=== PATIENT | female | born 1940 | race African-American/Black ===

== ENCOUNTER 2023-06-02 15:25 | Inpatient (IN) | payer MEDICARE, MEDICAID ==
[~2023-06-02] VITALS: Ht 165.1 cm; Wt 90.3 kg
[2023-06-02] VITALS (7 sets, daily range): BP systolic 141–166; BP diastolic 82–91; PULSE 97–112; RESP 17–32; TEMP 96.7–98.3; O2SAT 94–100
[2023-06-02] MEDS ORDERED: ALBUTEROL SULFATE/IPRATROPIU 3 ML SOL IH ONE (15:40)
[2023-06-02] MEDS: ALBUTEROL SULFATE/IPRATROPIU 3 ML SOL IH ONE (15:44)
[2023-06-02] MEDS ORDERED: cefTRIAXone 1,000 MG VIAL ONE (15:52)
[2023-06-02] MEDS: AZITHROMYCIN 500 MG in DEXTROSE 5% 250 ML IV ONE (16:00)
[2023-06-02 16:09] LABS: BLOOD GAS BASE EXCESS 2.2 mmol/L (-2.0-2.0); BLOOD GAS HCO3 27.7 mmol/L (22-26); BLOOD GAS O2 SAT% 94.9 % (92.0-98.5); BLOOD GAS PH 7.389 (7.35-7.45); BLOOD GAS PO2 74.6 mmHg (75-100)
[2023-06-02] MEDS: methylPREDNISolone SS 125 MG/2 ML VIAL IVP ONE (16:16)
[2023-06-02] MEDS ORDERED: AZITHROMYCIN 500 MG INJ VIAL IV ONE (16:29)
[2023-06-02] MEDS: guaiFENesin DM 200/20 MG-10 ML 10 ML UDC PO ONE (16:33)
[2023-06-02] MEDS: KETOROLAC 30 MG/ML VIAL IVP ONE (16:34)
[2023-06-02 16:36] LABS: BASOPHILS % (AUTO) 0.5 % (0.0-2.0); EOSINOPHILS # (AUTO) 0.3 K/uL (0-0.4); EOSINOPHILS % (AUTO) 2.7 % (0.0-4.0); HEMATOCRIT 35.2 % (36-48); HEMOGLOBIN 11.8 g/dL (12.0-16.0); LYMPHOCYTES % (AUTO) 9.9 % (20.5-51.1); MEAN CORPUSCULAR HEMOGLOBIN 31 pg (27-31); MEAN CORPUSCULAR HGB CONC 34 g/dL (33-37); MEAN CORPUSCULAR VOLUME 93.7 fL (80-94); NEUTROPHILS # (AUTO) 7.4 K/uL (1.8-7.7); NEUTROPHILS % (AUTO) 76.9 % (42.2-75.2); PLATELET COUNT (AUTO) 174 K/uL (140-450); RED BLOOD CELL COUNT(AUTO) 3.76 MIL/uL (4.20-5.40); RED CELL DISTRIBUTION WIDTH 14.4 % (11.6-13.7); WHITE BLOOD COUNT (AUTO) 9.6 K/uL (4.8-10.8)
[2023-06-02 16:46] LABS: ANION GAP 8.9 (8-16); CALCIUM 8.8 mg/dL (8.5-10.1); CARBON DIOXIDE 32.4 mmol/L (21-32); CHLORIDE 99 mmol/L (98-107); GLUCOSE 126 mg/dL (74-106); POTASSIUM 3.3 mmol/L (3.5-5.1); SODIUM SERUM 137 mmol/L (136-145); UREA NITROGEN, BLOOD 16 mg/dL (7-18)
[2023-06-02 16:51] LABS: FLU A ANTIGEN negative (NEGATIVE); FLU B ANTIGEN NEGATIVE (NEGATIVE)
[2023-06-02 16:55] LABS: ALANINE AMINOTRANSFERASE 13 U/L (12-78); ALBUMIN 3.3 g/dL (3.4-5.0); ALKALINE PHOSPHATASE 73 U/L (50-136); ASPARTATE AMINOTRANSFERASE 19 U/L (15-37); BILIRUBIN,DIRECT 0.1 mg/dL (0.0-0.3); TOTAL BILIRUBIN 0.3 mg/dL (0.0-1.0); TOTAL PROTEIN, SERUM 8.5 g/dL (6.4-8.2)
[2023-06-02 17:16] LABS: LACTIC ACID 1.5 mmol/L (0.4-2.0)
[2023-06-02 17:41] LABS: APPEARANCE,URINE CLEAR (CLEAR); BILIRUBIN,URINE NEGATIVE (NEGATIVE); BLOOD, URINE TRACE-I (NEGATIVE); COLOR,URINE YELLOW (YELLOW); LEUKOCYTE ESTERASE ,URINE TRACE (NEGATIVE); NITRITE, URINE NEGATIVE (NEGATIVE); PROTEIN,URINE NEGATIVE (NEGATIVE); UGLUCOSE NEGATIVE (NEGATIVE); UROBILINOGEN,URINE 0.2 EU/dL (0.2 - 1)
[2023-06-02] MEDS ORDERED: FAMO-90 PO (17:44)
[2023-06-02] MEDS ORDERED: ALBU0.63 NEB (17:44)
[2023-06-02] MEDS ORDERED: HYDR-2849 PO (17:44)
[2023-06-02] MEDS ORDERED: FLONAS NS (17:44)
[2023-06-02] MEDS ORDERED: GABA300C PO (17:44)
[2023-06-02] MEDS ORDERED: ALBU0.0912 INH (17:44)
[2023-06-02] MEDS ORDERED: SITA100T8 PO (17:44)
[2023-06-02 17:46] LABS: BACTERIA,URINE FEW /HPF (None Seen); RBC,URINE 0-5 /HPF (0-5); SQUAMOUS EPITHELIAL CELL,UR 0-3 (FEW) /LPF (0-3 (FEW)); WBC,URINE 0-5 /HPF (0-5)
[2023-06-02] MEDS ORDERED: ZOLPIDEM 10 MG TAB PO PRN (17:55)
[2023-06-02] MEDS ORDERED: ALBUTEROL SULFATE/IPRATROPIU 3 ML SOL IH SCH ×2 (17:55→23:00)
[2023-06-02] MEDS ORDERED: ONDANSETRON 4 MG/2 ML VIAL IVP PRN (17:55)
[2023-06-02] MEDS ORDERED: MORPHINE SULFATE 4 MG/ML SYR IVP PRN (17:55)
[2023-06-02] MEDS ORDERED: MAG SULF 2000 MG/WATER PREMIX 50 ML IV PRN (17:55)
[2023-06-02] MEDS ORDERED: ACETAMINOPHEN 325 MG TAB PO PRN (17:55)
[2023-06-02] MEDS: HYDROcodone/APAP 5/325 MG 1 TAB TAB PO ONE (18:13)
[2023-06-02] MEDS: ALBUTEROL SULFATE/IPRATROPIU 3 ML SOL IH SCH (21:16)
[2023-06-02] MEDS: methylPREDNISolone SS 40 MG in WATER STERILE 1 ML IV SCH (21:20)
[2023-06-02] MEDS: WATER STERILE 10 ML MC ONE (21:24)
[2023-06-02] MEDS: methylPREDNISolone SS 40 MG/ML VIAL ONE (21:24)
[2023-06-02] MEDS ORDERED: DEXTROSE 50% 50 ML SYR IVP PRN (21:45)
[2023-06-02] MEDS: POTASSIUM CHLORIDE 10 MEQ TABER PO PRN (22:53)
[2023-06-03] VITALS (19 sets, daily range): BP systolic 131–154; BP diastolic 66–95; PULSE 83–115; RESP 20–31; TEMP 93–98.6; O2SAT 92–99
[2023-06-03] MEDS: HYDROcodone/APAP 5/325 MG 1 TAB TAB PO PRN (02:28)
[2023-06-03] MEDS: methylPREDNISolone SS 40 MG/ML VIAL ONE (05:32)
[2023-06-03] MEDS: WATER STERILE 10 ML MC ONE (05:32)
[2023-06-03] MEDS: guaiFENesin 600 MG TABER PO SCH (06:04)
[2023-06-03] MEDS: LORazepam 2 MG/ML VIAL IVP PRN (06:08)
[2023-06-03 06:24] LABS: BASOPHILS # (AUTO) 0.1 K/uL (0.00-0.22); BASOPHILS % (AUTO) 0.7 % (0.0-2.0); EOSINOPHILS % (AUTO) 0.1 % (0.0-4.0); HEMATOCRIT 35.6 % (36-48); LYMPHOCYTES # (AUTO) 0.4 K/uL (2.5-16.5); LYMPHOCYTES % (AUTO) 5.5 % (20.5-51.1); MEAN CORPUSCULAR HEMOGLOBIN 32 pg (27-31); MEAN CORPUSCULAR HGB CONC 34 g/dL (33-37); MEAN CORPUSCULAR VOLUME 93.4 fL (80-94); MONOCYTES # (AUTO) 0.4 K/uL (0.8-1.0); MONOCYTES % (AUTO) 5.5 % (1.7-9.3); NEUTROPHILS # (AUTO) 6.8 K/uL (1.8-7.7); NEUTROPHILS % (AUTO) 88.2 % (42.2-75.2); PLATELET COUNT (AUTO) 76 K/uL (140-450); RED BLOOD CELL COUNT(AUTO) 3.81 MIL/uL (4.20-5.40); RED CELL DISTRIBUTION WIDTH 14.8 % (11.6-13.7); WHITE BLOOD COUNT (AUTO) 7.7 K/uL (4.8-10.8)
[2023-06-03] MEDS: BLOOD GLUCOSE MONITORING 1 DEV DEV FS SCH (06:33)
[2023-06-03 06:50] LABS: ALANINE AMINOTRANSFERASE 24 U/L (12-78); ALBUMIN 3.6 g/dL (3.4-5.0); ALKALINE PHOSPHATASE 71 U/L (50-136); ANION GAP 12.4 (8-16); ASPARTATE AMINOTRANSFERASE 17 U/L (15-37); CALCIUM 9.1 mg/dL (8.5-10.1); CARBON DIOXIDE 29.2 mmol/L (21-32); CHLORIDE 95 mmol/L (98-107); CREATININE 0.9 mg/dL (0.6-1.3); GLUCOSE 159 mg/dL (74-106); POTASSIUM 4.6 mmol/L (3.5-5.1); SODIUM SERUM 132 mmol/L (136-145); TOTAL PROTEIN, SERUM 8.3 g/dL (6.4-8.2); UREA NITROGEN, BLOOD 17 mg/dL (7-18)
[2023-06-03] MEDS: PANTOPRAZOLE 40 MG INJ VIAL IVP SCH (08:55)
[2023-06-03] MEDS ORDERED: guaiFENesin 600 MG TABER PO SCH (09:00)
[2023-06-03 10:08] LABS: BLOOD GAS PCO2 49.5 mmHg (35-45); BLOOD GAS PH 7.372 (7.35-7.45); BLOOD GAS PO2 73.2 mmHg (75-100)
[2023-06-03 10:09] LABS: BLOOD GAS BASE EXCESS 2.1 mmol/L (-2.0-2.0); BLOOD GAS HCO3 28.1 mmol/L (22-26); BLOOD GAS O2 SAT% 94.7 % (92.0-98.5)
[2023-06-03] MEDS: IPRATROPIUM 0.02% 0.5 MG/2.5 ML NEBU INH SCH (10:09)
[2023-06-03] MEDS: LEVALBUTEROL 0.63 MG/3 ML NEBU INH SCH (10:09)
[2023-06-03] MEDS: FUROSEMIDE 40 MG/4 ML VIAL IVP SCH (10:10)
[2023-06-03 10:40] LABS: TOTAL BILIRUBIN 0.4 mg/dL (0.0-1.0)
[2023-06-03] MEDS ORDERED: hydrALAZINE 20 MG/ML VIAL IVP PRN (10:55)
[2023-06-03] MEDS ORDERED: CLINICAL MONITORING MC PRN (11:20)
[2023-06-03] MEDS: methylPREDNISolone SS 40 MG/ML VIAL IVP SCH (12:26)
[2023-06-03] MEDS: INSULIN LISPRO SLIDING SCALE 100 UNITS/ML VIAL SUBQ PRN (12:27)
[2023-06-03] MEDS: IPRATROPIUM 0.02% 0.5 MG/2.5 ML NEBU INH PRN (13:45)
[2023-06-03] MEDS: BENZONATATE 100 MG CAPLF PO PRN (14:03)
[2023-06-03] MEDS: LEVALBUTEROL 0.63 MG/3 ML NEBU INH PRN (17:49)
[2023-06-03] MEDS: AZITHROMYCIN 500 MG in DEXTROSE 5% 250 ML IV SCH (18:19)
[2023-06-03] MEDS: GABAPENTIN 300 MG CAP PO SCH (21:52)
[2023-06-04] VITALS (17 sets, daily range): BP systolic 110–155; BP diastolic 58–96; PULSE 80–114; RESP 18–24; TEMP 96.3–98.8; O2SAT 93–99
[2023-06-04] MEDS: ACETYLCYSTEINE 10% (100 MG/ML) 100 MG/ML VIAL INH SCH (04:00)
[2023-06-04 06:15] LABS: BASOPHILS % (AUTO) 0.1 % (0.0-2.0); HEMATOCRIT 35.2 % (36-48); LYMPHOCYTES # (AUTO) 0.6 K/uL (2.5-16.5); LYMPHOCYTES % (AUTO) 8.2 % (20.5-51.1); MEAN CORPUSCULAR HEMOGLOBIN 31 pg (27-31); MEAN CORPUSCULAR HGB CONC 34 g/dL (33-37); MEAN CORPUSCULAR VOLUME 92.3 fL (80-94); MONOCYTES % (AUTO) 12.8 % (1.7-9.3); NEUTROPHILS # (AUTO) 6.2 K/uL (1.8-7.7); NEUTROPHILS % (AUTO) 78.9 % (42.2-75.2); PLATELET COUNT (AUTO) 196 K/uL (140-450); RED BLOOD CELL COUNT(AUTO) 3.81 MIL/uL (4.20-5.40); RED CELL DISTRIBUTION WIDTH 14.8 % (11.6-13.7); WHITE BLOOD COUNT (AUTO) 7.8 K/uL (4.8-10.8)
[2023-06-04 06:45] LABS: ALANINE AMINOTRANSFERASE 26 U/L (12-78); ALBUMIN 3.2 g/dL (3.4-5.0); ALKALINE PHOSPHATASE 72 U/L (50-136); ANION GAP 13.9 (8-16); ASPARTATE AMINOTRANSFERASE 36 U/L (15-37); CALCIUM 8.7 mg/dL (8.5-10.1); CARBON DIOXIDE 30.8 mmol/L (21-32); CHLORIDE 90 mmol/L (98-107); GLUCOSE 138 mg/dL (74-106); MAGNESIUM 2.1 mg/dL (1.8-2.4); POTASSIUM 4.7 mmol/L (3.5-5.1); SODIUM SERUM 130 mmol/L (136-145); TOTAL BILIRUBIN 0.5 mg/dL (0.0-1.0); TOTAL PROTEIN, SERUM 8.7 g/dL (6.4-8.2); UREA NITROGEN, BLOOD 22 mg/dL (7-18)
[2023-06-04] MEDS: BUDESONIDE 0.5 MG/2 ML NEBU INH SCH (07:47)
[2023-06-04] MEDS: lisinopriL 10 MG TAB PO SCH (10:19)
[2023-06-04] MEDS: SENNA 8.6 MG TAB PO SCH (12:17)
[2023-06-04] MEDS: POLYETHYLENE GLYCOL 17 GM/PKT PO SCH (12:17)
[2023-06-05] VITALS (14 sets, daily range): BP systolic 97–119; BP diastolic 57–82; PULSE 72–104; RESP 16–22; TEMP 97–97.4; O2SAT 92–100
[2023-06-05 07:06] LABS: BASOPHILS % (AUTO) 0.1 % (0.0-2.0); EOSINOPHILS % (AUTO) 0.1 % (0.0-4.0); HEMATOCRIT 34.8 % (36-48); HEMOGLOBIN 11.8 g/dL (12.0-16.0); LYMPHOCYTES # (AUTO) 0.7 K/uL (2.5-16.5); LYMPHOCYTES % (AUTO) 12.5 % (20.5-51.1); MEAN CORPUSCULAR HEMOGLOBIN 31 pg (27-31); MEAN CORPUSCULAR HGB CONC 34 g/dL (33-37); MEAN CORPUSCULAR VOLUME 92.2 fL (80-94); MONOCYTES # (AUTO) 0.9 K/uL (0.8-1.0); MONOCYTES % (AUTO) 17.8 % (1.7-9.3); NEUTROPHILS # (AUTO) 3.7 K/uL (1.8-7.7); NEUTROPHILS % (AUTO) 69.5 % (42.2-75.2); PLATELET COUNT (AUTO) 201 K/uL (140-450); RED BLOOD CELL COUNT(AUTO) 3.77 MIL/uL (4.20-5.40); RED CELL DISTRIBUTION WIDTH 14.8 % (11.6-13.7); WHITE BLOOD COUNT (AUTO) 5.3 K/uL (4.8-10.8)
[2023-06-05 07:42] LABS: ALANINE AMINOTRANSFERASE 27 U/L (12-78); ALBUMIN 2.9 g/dL (3.4-5.0); ALKALINE PHOSPHATASE 60 U/L (50-136); ANION GAP 12.5 (8-16); ASPARTATE AMINOTRANSFERASE 37 U/L (15-37); CARBON DIOXIDE 30.6 mmol/L (21-32); CHLORIDE 93 mmol/L (98-107); CREATININE 1.2 mg/dL (0.6-1.3); GLUCOSE 140 mg/dL (74-106); MAGNESIUM 2.3 mg/dL (1.8-2.4); PHOSPHORUS 6.1 mg/dL (2.5-4.9); POTASSIUM 4.1 mmol/L (3.5-5.1); SODIUM SERUM 132 mmol/L (136-145); TOTAL BILIRUBIN 0.2 mg/dL (0.0-1.0); TOTAL PROTEIN, SERUM 7.9 g/dL (6.4-8.2); UREA NITROGEN, BLOOD 43 mg/dL (7-18)
[2023-06-06] VITALS (16 sets, daily range): BP systolic 95–127; BP diastolic 59–85; PULSE 77–109; RESP 18–20; TEMP 97.1–98.5; O2SAT 93–100
[2023-06-06 07:05] LABS: ALANINE AMINOTRANSFERASE 29 U/L (12-78); ALBUMIN 2.9 g/dL (3.4-5.0); ALKALINE PHOSPHATASE 62 U/L (50-136); ANION GAP 8.4 (8-16); ASPARTATE AMINOTRANSFERASE 31 U/L (15-37); BASOPHILS % (AUTO) 0.2 % (0.0-2.0); CALCIUM 8.2 mg/dL (8.5-10.1); CARBON DIOXIDE 32.2 mmol/L (21-32); CHLORIDE 94 mmol/L (98-107); CREATININE 1.2 mg/dL (0.6-1.3); EOSINOPHILS % (AUTO) 0.1 % (0.0-4.0); GLUCOSE 159 mg/dL (74-106); HEMATOCRIT 36.1 % (36-48); HEMOGLOBIN 12.2 g/dL (12.0-16.0); LYMPHOCYTES # (AUTO) 0.8 K/uL (2.5-16.5); LYMPHOCYTES % (AUTO) 15.1 % (20.5-51.1); MAGNESIUM 2.6 mg/dL (1.8-2.4); MEAN CORPUSCULAR HEMOGLOBIN 31 pg (27-31); MEAN CORPUSCULAR HGB CONC 34 g/dL (33-37); MEAN CORPUSCULAR VOLUME 92.4 fL (80-94); MONOCYTES % (AUTO) 17.7 % (1.7-9.3); NEUTROPHILS # (AUTO) 3.8 K/uL (1.8-7.7); NEUTROPHILS % (AUTO) 66.9 % (42.2-75.2); PHOSPHORUS 5.3 mg/dL (2.5-4.9); PLATELET COUNT (AUTO) 198 K/uL (140-450); POTASSIUM 4.6 mmol/L (3.5-5.1); RED BLOOD CELL COUNT(AUTO) 3.91 MIL/uL (4.20-5.40); RED CELL DISTRIBUTION WIDTH 14.5 % (11.6-13.7); SODIUM SERUM 130 mmol/L (136-145); TOTAL BILIRUBIN 0.2 mg/dL (0.0-1.0); TOTAL PROTEIN, SERUM 8.1 g/dL (6.4-8.2); UREA NITROGEN, BLOOD 52 mg/dL (7-18); WHITE BLOOD COUNT (AUTO) 5.6 K/uL (4.8-10.8)
[2023-06-06] MEDS: predniSONE 20 MG TAB PO SCH (10:45)
[2023-06-07] VITALS (14 sets, daily range): BP systolic 103–120; BP diastolic 60–80; PULSE 82–122; RESP 16–22; TEMP 97.2–98.7; O2SAT 95–100
[2023-06-08] VITALS (12 sets, daily range): BP systolic 96–135; BP diastolic 61–83; PULSE 77–122; RESP 16–20; TEMP 97–98.2; O2SAT 92–100
[2023-06-08 08:12] LABS: BASOPHILS % (AUTO) 0.6 % (0.0-2.0); EOSINOPHILS % (AUTO) 0.6 % (0.0-4.0); HEMATOCRIT 37.3 % (36-48); HEMOGLOBIN 12.3 g/dL (12.0-16.0); LYMPHOCYTES # (AUTO) 2.4 K/uL (2.5-16.5); LYMPHOCYTES % (AUTO) 42.8 % (20.5-51.1); MEAN CORPUSCULAR HEMOGLOBIN 31 pg (27-31); MEAN CORPUSCULAR HGB CONC 33 g/dL (33-37); MEAN CORPUSCULAR VOLUME 92.9 fL (80-94); MONOCYTES % (AUTO) 17.6 % (1.7-9.3); NEUTROPHILS # (AUTO) 2.1 K/uL (1.8-7.7); NEUTROPHILS % (AUTO) 38.4 % (42.2-75.2); PLATELET COUNT (AUTO) 206 K/uL (140-450); RED BLOOD CELL COUNT(AUTO) 4.02 MIL/uL (4.20-5.40); RED CELL DISTRIBUTION WIDTH 14.4 % (11.6-13.7); WHITE BLOOD COUNT (AUTO) 5.5 K/uL (4.8-10.8)
[2023-06-08 08:34] LABS: ALANINE AMINOTRANSFERASE 28 U/L (12-78); ALKALINE PHOSPHATASE 63 U/L (50-136); ANION GAP 5.3 (8-16); ASPARTATE AMINOTRANSFERASE 20 U/L (15-37); CALCIUM 8.5 mg/dL (8.5-10.1); CARBON DIOXIDE 36.8 mmol/L (21-32); CHLORIDE 96 mmol/L (98-107); CREATININE 1.1 mg/dL (0.6-1.3); GLUCOSE 105 mg/dL (74-106); POTASSIUM 4.1 mmol/L (3.5-5.1); SODIUM SERUM 134 mmol/L (136-145); TOTAL BILIRUBIN 0.4 mg/dL (0.0-1.0); TOTAL PROTEIN, SERUM 8.3 g/dL (6.4-8.2); UREA NITROGEN, BLOOD 36 mg/dL (7-18)
[2023-06-09] VITALS (10 sets, daily range): BP systolic 100–130; BP diastolic 57–72; PULSE 66–103; RESP 16–20; TEMP 97–97.9; O2SAT 92–100
[2023-06-09] MEDS ORDERED: MUC600 PO (14:39)
[2023-06-09] MEDS ORDERED: METH4TAB1 PO (14:39)
[2023-06-09] MEDS ORDERED: BENZ100C6 PO (14:39)
[2023-06-15] MEDS ORDERED: ALBU3SOL30 IH (16:34)
== END 2023-06-09 17:52 | disposition home health service (06) | DRG 871 ==
LOC: MED 15:25 → MTU 18:01
PROVIDERS: ADMIT Family Medicine; ATTEND Family Medicine
PROC: 5A09357 Assistance with Respiratory Ventilation, Less than 24 Consecutive Hours, Continuous Positive Airway Pressure (ICD-10-PCS; principal; 2023-06-02)
DX: A41.9 Sepsis, unspecified organism (principal); J15.69 Pneumonia due to other Gram-negative bacteria; J96.01 Acute respiratory failure with hypoxia; J96.02 Acute respiratory failure with hypercapnia; J44.1 Chronic obstructive pulmonary disease with (acute) exacerbation; E87.1 Hypo-osmolality and hyponatremia; D64.9 Anemia, unspecified; E87.8 Other disorders of electrolyte and fluid balance, not elsewhere classified; E87.6 Hypokalemia; Z20.822 Contact with and (suspected) exposure to COVID-19; D69.6 Thrombocytopenia, unspecified; Z88.0 Allergy status to penicillin; Z79.899 Other long term (current) drug therapy; Z85.3 Personal history of malignant neoplasm of breast
CPT/HCPCS: 36415; 36600; 71045; 71250; 80048; 80053; 80076; 81001; 82803; 82948; 83605; 83735; 83880; 84100; 84484; 85025; 87040; 87070; 87081; 87086; 87205; 89220; 93005; 93308; 94640; 96365; 96368; 96375; 97112; 97116; 97530; 99291; C9113; J0456; J0696; J1644; J1815; J1885; J1940; J2060; J2920; J2930; J7060; J7512; J7614; J7626; J7644